=== PATIENT | female | born 1960 | race Caucasian/White ===

== ENCOUNTER → 2016-10-07 | Outpatient (CLI) | payer OTHER ==
--- NOTE | 2016-10-07 16:57 | BD ---
EXAMINATION TYPE: MG DEXA axial skeleton. DATE OF EXAM: 10/07/2016 7:36 AM COMPARISON: NONE CLINICAL HISTORY: 55-year-old female Z78.0 POST MENOPAUSAL Height: Weight: FRAX RISK QUESTIONS: Alcohol (3 or more units per day): NO Family History (Parent hip fracture): NO FRACTURES Glucocorticoids (More than 3mos): NO (Ex: prednisone, prednisolone, methylprednisolone, dexamethasone, and hydrocortisone). History of Fracture in Adulthood: NO Secondary Osteoporosis: NO 1. Type 1 Diabetes: NO 2. Hyperthyroidism: NO 3. Menopause before 45: NO 4. Malnutrition: NO 5. Chronic liver disease: NO Rheumatoid Arthritis: NO Current Tobacco Use: NO RISK FACTORS HISTORY OF: Family History of Osteoporosis: YES, MOTHER, SISTER Smoke tobacco: NO Drink Alcohol: NO Active: SOMEWHAT Diet low in dairy products/other sources of calcium: NO Postmenopausal woman: 52 YRS OLD Adrenal Insufficiency: NO MEDICATIONS: Additional Medications: NONE TO NOTE Additional History: NONE TO NOTE EXAM MEASUREMENTS: Bone mineral densitometry was performed using the [employer] System. Bone mineral density as measured about the Lumbar spine is: ----- L1-L4(G/cm2): 0.840 T Score Values are as follows: ----- L1: -2.8 ----- L2: -3.5 ----- L3: -2.5 ----- L4: -2.8 ----- L1-L4: -2.8 Bone mineral density THIS IS HER FIRST BONE DENSITY SCAN......BASELINE STUDY Bone mineral density about the R hip (g/cm2): 0.691 Bone mineral density about the L hip (g/cm2): 0.726 T Score values are as follows: -----R Neck: -2.4 -----L Neck: -2.5 -----R Total: -2.5 -----L Total: -2.2 Bone mineral density BASELINE STUDY FOR HER FRAX %'S: 8.6% CHANCE FOR A MAJOR OSTEOPOROTIC FX AND A 1.6% CHANCE FOR A HIP FX.......PROBABILITY OF FX IN 10 YRS TIME IMPRESSION: Osteoporosis as indicated by T score values in the lumbar spine and both hips. There is increased fracture risk and therapy is usually indicated based on age. Re-Screen 1-2 years. NOTE: T-SCORE=SD OF THE YOUNG ADULT MEAN.
--- NOTE | 2016-10-11 14:02 | MM ---
Reason for exam: screening (asymptomatic). Last mammogram was performed 1 year and 1 month ago. History: Patient is nulliparous. Family history of breast cancer in mother at age 68. Took hormonal contraceptives for 22 years 4 months beginning at age 24. Physical Findings: A clinical breast exam by your physician is recommended on an annual basis and results should be correlated with mammographic findings. MG Screening Mammo w CAD Bilateral CC and MLO view(s) were taken. Prior study comparison: August 25, 2015, bilateral MG screening mammo w CAD. April 25, 2014, bilateral MG screening mammo w CAD. The breast tissue is heterogeneously dense. This may lower the sensitivity of mammography. There is no discrete abnormality. ASSESSMENT: Negative, BI-RAD 1 RECOMMENDATION: Routine screening mammogram of both breasts in 1 year.
== END | disposition home or self-care (01) ==
LOC: RADMAMWWP 07:07
PROVIDERS: ATTEND Obstetrics & Gynecology
DX: Z12.31 Encounter for screening mammogram for malignant neoplasm of breast (principal); M81.0 Age-related osteoporosis without current pathological fracture; Z78.0 Asymptomatic menopausal state; Z80.3 Family history of malignant neoplasm of breast
CPT/HCPCS: 84439; 80061; 82947; 84443; 77080; G0202

== ENCOUNTER → 2017-07-10 | Outpatient (CLI) | payer OTHER | END | disposition home or self-care (01) | LOC: RADECHMAIN 11:53 | PROVIDERS: ATTEND Family Medicine | DX: R00.2 Palpitations (principal) | CPT/HCPCS: 93270; 93271 ==

== ENCOUNTER 2017-07-22 05:27 | Inpatient (IN) | payer OTHER ==
[2017-07-22] MEDS ORDERED: SODIUM CHLORIDE 0.9% 1,000 ML IV STA (05:42)
--- NOTE | 2017-07-22 05:45 | ED ---
General Adult HPI - General Chief complaint: Recheck/Abnormal Lab/Rx Stated complaint: Certified Pediatric Nurse Practitioner Alarm Time Seen by Provider: 07/22/17 05:42 Source: patient, RN notes reviewed, old records reviewed Mode of arrival: ambulatory Limitations: no limitations - History of Present Illness Initial comments: This is a 36-year-old female the ER for evaluation of abnormal dizziness and palpitations. Patient does have history of syncopal events. Patient will also monitor secondary to episodes of syncope. Patient states she felt awkward symptoms last night did not pass out but they did send the patient for evaluation regarding out of secondary to abnormal rhythm - Related Data Allergies Allergy/AdvReac Type Severity Reaction Status Date / Time No Known Allergies Allergy Verified 07/22/17 05:36 Review of Systems ROS Statement: Those systems with pertinent positive or pertinent negative responses have been documented in the HPI. ROS Other: All systems not noted in ROS Statement are negative. Past Medical History Additional Past Medical History / Comment(s): syncopal episodes History of Any Multi-Drug Resistant Organisms: None Reported Past Surgical History: No Surgical Hx Reported Past Psychological History: No Psychological Hx Reported Smoking Status: Never smoker Past Alcohol Use History: None Reported Past Drug Use History: None Reported General Exam Limitations: no limitations General appearance: alert, in no apparent distress Head exam: Present: atraumatic, normocephalic, normal inspection Eye exam: Present: normal appearance, PERRL, EOMI. Absent: scleral icterus, conjunctival injection, periorbital swelling ENT exam: Present: normal exam, mucous membranes moist Neck exam: Present: normal inspection. Absent: tenderness, meningismus, lymphadenopathy Respiratory exam: Present: normal lung sounds bilaterally. Absent: respiratory distress, wheezes, rales, rhonchi, stridor Cardiovascular Exam: Present: regular rate, normal rhythm, normal heart sounds. Absent: systolic murmur, diastolic murmur, rubs, gallop, clicks GI/Abdominal exam: Present: soft, normal bowel sounds. Absent: distended, tenderness, guarding, rebound, rigid Extremities exam: Present: normal inspection, full ROM, normal capillary refill. Absent: tenderness, pedal edema, joint swelling, calf tenderness Back exam: Present: normal inspection Neurological exam: Present: alert, oriented X3, CN II-XII intact Psychiatric exam: Present: normal affect, normal mood Skin exam: Present: warm, dry, intact, normal color. Absent: rash Course Vital Signs 07/22/17 05:30 Temperature 97.9 F Pulse Rate 88 Respiratory 16 Rate Blood Pressure 118/73 O2 Sat by Pulse 100 Oximetry - Reevaluation(s) Reevaluation #1: 07/22/17 05:[address] Martin re patient abnormal rhythm, patient had runs of Ventricular Tachycardia on Halter Monitor no VT here in ED EKG Findings - EKG Comments: EKG Findings:: EKG shows normal sinus rhythm rate of 76, [place] 1:30, QRS 02, QTc 434 Medical Decision Making - Medical Decision Making 56 female the ER for evaluation of altered monitor secondary to recent syncopal events. Patient be admitted for run of V. tach and seen by cardiology Disposition Clinical Impression: Arrhythmia, Ventricular tachycardia Disposition: ADMITTED IP TO THIS HOSP Condition: Good Referrals: Jack Almaraz MD [Primary Care Provider] - 1-2 days
[2017-07-22 06:23] LABS: Basophils % (A) 1 %; Eosinophils # (A) 0.1 k/uL (0-0.7); Eosinophils % (A) 1 %; HCT 40.5 % (34.0-46.0); HGB 13.1 gm/dL (11.4-16.0); Lymphocytes # (A) 1.6 k/uL (1.0-4.8); Lymphocytes % (A) 32 %; MCH 28.9 pg (25.0-35.0); MCHC 32.4 g/dL (31.0-37.0); MCV 89.2 fL (80.0-100.0); Mean Platelet Volume 7.8; Monocytes # (A) 0.3 k/uL (0-1.0); Monocytes % (A) 5 %; Neutrophils % (A) 61 %; Platelet Count 204 k/uL (150-450); RBC 4.54 m/uL (3.80-5.40); RDW 12.7 % (11.5-15.5)
[2017-07-22 06:32] LABS: Partial Thromboplastin Time 22.4 sec (22.0-30.0)
[2017-07-22 06:33] LABS: ALT 24 U/L (9-52); AST 21 U/L (14-36); Albumin 3.9 g/dL (3.5-5.0); Alkaline Phosphatase 70 U/L (38-126); Anion Gap 10 mmol/L; Blood Urea Nitrogen 20 mg/dL (7-17); Calcium 9.3 mg/dL (8.4-10.2); Carbon Dioxide 25 mmol/L (22-30); Chloride 107 mmol/L (98-107); Glucose 89 mg/dL (74-99); Phosphorus 3.8 mg/dL (2.5-4.5); Potassium 4.2 mmol/L (3.5-5.1); Sodium 142 mmol/L (137-145); Total Bilirubin 0.4 mg/dL (0.2-1.3); Total Protein 6.8 g/dL (6.3-8.2)
[2017-07-22 06:57] LABS: Creatine Kinase 40 U/L (30-135)
[2017-07-22 07:10] LABS: Creatine Kinase MB 0.3 ng/mL (0.0-2.4); Troponin I <0.012 ng/mL (0.000-0.034)
[2017-07-22] MEDS ORDERED: ONDANSETRON 4 MG/2 ML VIAL IVP PRN (12:33)
[2017-07-22] MEDS ORDERED: LACTULOSE 20 GM/30 ML CUP PO PRN (12:33)
[2017-07-22] MEDS ORDERED: NALOXONE 0.4 MG/ML 1 ML VIAL IV PRN (12:33)
[2017-07-22] MEDS ORDERED: LORazepam 0.5 MG TAB PO PRN (12:33)
[2017-07-22] MEDS ORDERED: Acetaminophen-Codeine 300-30mg TAB PO PRN (12:33)
[2017-07-22] MEDS ORDERED: CALCIUM CARBONATE 500 MG CHEWABLE PO PRN (12:33)
[2017-07-22] MEDS ORDERED: MELATONIN 3 MG TABLET PO PRN (12:33)
[2017-07-22] MEDS ORDERED: MAGNESIUM HYDROXIDE 2,400 MG/10 ML CUP PO PRN (12:33)
--- NOTE | 2017-07-22 13:10 | HP ---
HISTORY AND PHYSICAL DATE OF ADMISSION: 07/22/17. PRESENT COMPLAINT: Dizzy. HISTORY OF PRESENTING COMPLAINT: A very pleasant 56-year-old patient of Dr. Almaraz with unremarkable past medical history. Patient on July 04 was [place] when she actually passed out. She got up not feeling well, tingling in the fingers. Since then, she has had some episodes of dizziness spells, was given a Holter monitor by family doctor, Dr. Almaraz. The patient was called in because she had a 14-beat run of ventricular tachycardia and she is now being admitted for the same. Denies any chest pain or palpitations. Rather active otherwise. Denies use of any recreational drugs. Otherwise in good health. The patient's is at the bedside. REVIEW OF SYSTEMS: CONSTITUTIONAL: None. HEENT: None. RESPIRATORY: None. CARDIOVASCULAR: As above. GASTROINTESTINAL: Denies. MUSCULOSKELETAL: None. DERMATOLOGIC, HEMATOLOGIC, LYMPHATIC: None. PSYCHIATRY: None. NEUROLOGICAL: None. PAST MEDICAL HISTORY: None. PAST SURGICAL HISTORY: None. SOCIAL HISTORY: No smoking, no alcohol. Patient does pattern for car seats. . No recreational drugs. FAMILY HISTORY: Reviewed, noncontributory to presentation. HOME MEDICATIONS: Vitamin D3 1000 units p.o. daily, calcium 600 mg p.o. daily, vitamin C 500 mg p.o. daily. ALLERGIES: None. PHYSICAL EXAMINATION: Temperature 98.2, pulse 78, respirations 16, blood pressure 116/73, pulse ox 96% on room air. GENERAL APPEARANCE: Average built, sitting up, comfortable. EYES: Pupils equal. Conjunctivae normal. HEENT: External appearance of ears and nose normal. Oral cavity normal. NECK: JVD not raised. Mass not palpable. RESPIRATORY: Effort, lungs are clear. CARDIOVASCULAR: First and second sounds, no edema. ABDOMEN: Soft, nontender. Liver and spleen not palpable. LYMPHATIC: No lymph node palpable in neck or axillae. PSYCHIATRY: Alert and oriented x3. Mood and affect normal. NEUROLOGICAL: Pupils equal. Cranial nerves grossly intact. Power and sensation grossly intact. INVESTIGATIONS: White count 5, hemoglobin 13.1 potassium 4.2. TSH normal. Troponin negative. EKG showing normal sinus rhythm. ASSESSMENT: This is a patient with episodes of dizzy spells and the patient had a syncope on July 04. Holter monitor did show 14-beat run of ventricular tachycardia for which patient is being admitted. PLAN: Patient is admitted with telemetry because of high risk of passing out. The patient needs to be observed for at least 2 nights and patient may need further intervention depending how she does. Electrophysiology, Dr. Beasley was consulted. Care was discussed with the patient. MMODL / IJN: [id number] /
--- NOTE | 2017-07-22 13:18 | CONS ---
CONSULTATION Mrs. Bennett is a patient of Dr. Jenkins who was asked to come in because of an abnormal event monitor ECG reading. I do not have the details at this time. She is a patient of Dr. Jenkins. She was prescribed event monitor because she had an episode of palpitations and syncope while sitting in an airplane. She denies any chest discomfort; no undue shortness of breath. No dizziness or lightheadedness. She has no palpitations, no syncope at this time when she had the abnormal rhythm. ALLERGIES: NO KNOWN DRUG ALLERGIES. REVIEW OF SYSTEMS: No fever, chills or rigors. No cough or expectoration. No nausea, vomiting or diarrhea. No hematuria or dysuria. No strokes or seizures. She has had one syncopal spell in an airplane. SOCIAL HISTORY: She has never been a smoker. PHYSICAL EXAMINATION: Her blood pressure was 118/73 mmHg, pulse rate in the 80s. She was afebrile at 97.9 degrees Fahrenheit. Head and neck examination is normal. Heart sounds are normal. Lungs are clear on auscultation. Extremities are warm; no edema. Twelve-lead ECG showed sinus rhythm with normal VA interval, narrow QRS, normal ST segments. No delta waves. No epsilon waves. IMPRESSION: 1. One recent episode of syncope while sitting. She was in an airplane at that time. 2. An abnormal reading on the event monitor. I do not have the details at this time. SUGGEST: 1. TSH level. 2. Two-dimensional echo and Doppler study. 3. Observation on telemetry as an inpatient. I will speak to Dr. Jenkins regarding further plans. MMODL / IJN: [id number] /
[2017-07-22] MEDS: ENOXAPARIN 40 MG/0.4 ML SYRINGE SQ SCH (17:50)
[2017-07-23] MEDS: ENOXAPARIN 40 MG/0.4 ML SYRINGE SQ SCH (08:32)
[2017-07-23] MEDS: ACETAMINOPHEN TAB 325 MG TAB PO PRN (08:32)
--- NOTE | 2017-07-23 09:33 | P.PN ---
Progress Note - Text No arrhythmias so far. 2-D echo pending. Discussed with nurse practitioner and with Dr. Jenkins. Inpatient workup of syncope and arrhythmias recommended TSH normal cardiac enzyme normal electrolytes normal. Normal ST segments on ECG narrow QRS normal NM and please see full dictation and as practitioner
--- NOTE | 2017-07-23 10:48 | P.PN ---
Subjective Progress Note Date: 07/23/17 Telemetry tracings have been unremarkable. She is maintaining sinus mechanism with no further events of ventricular tachycardia. She denies symptoms of chest pain, shortness of breath, dizziness, palpitations, nausea, vomiting or diaphoresis. She has been up ambulating without difficulty. TSH 3.2. Blood pressure 109/59 heart rate 75 afebrile maintaining oxygen saturation on room air. GENERAL: Well-appearing, well-nourished and in no acute distress. NECK: Supple without JVD or thyromegaly. LUNGS: Breath sounds clear to auscultation bilaterally. Respiration equal and unlabored. No wheezes, rales or rhonchi. HEART: Regular rate and rhythm without murmurs, rubs or gallops. S1 and S2 heard. EXTREMITIES: Normal range of motion, no edema. No clubbing or cyanosis. Peripheral pulses intact and strong. ASSESSMENT 1. Nonsustained ventricular tachycardia seen on event monitor. PLAN Continue to monitor patient on telemetry. Nothing by mouth documented for possible stress testing in the morning. This has been discussed with the patient and she is agreeable with this plan. Further recommendations to follow. Nurse Practitioner note has been reviewed, I agree with a documented findings and plan of care. Patient was seen and examined. Objective - Vital Signs Vital signs: Vital Signs Temp 97.9 F 07/23/17 04:00 Pulse 70 07/23/17 04:00 Resp 16 07/23/17 04:00 BP 108/67 07/23/17 04:00 Pulse Ox 99 07/23/17 04:00 Intake & Output 07/22/17 07/23/17 07/23/17 17:59 06:59 18:59 Weight Other: Voiding Method # Voids - Labs CBC & Chem 7: 07/22/17 05:53 07/22/17 05:53
--- NOTE | 2017-07-23 18:47 | PN ---
PROGRESS NOTE DATE OF SERVICE: 07/23/17. PRESENTING COMPLAINT: Dizzy. INTERVAL HISTORY: This patient presented with a run of ventricular tachycardia, admitted for further workup. The patient is for a stress test. No further episodes. The patient occasionally feels a bit flushed next. REVIEW OF SYSTEMS: Done for constitutional, cardiovascular, GI, pulmonary; relevant findings as above. CURRENT MEDICATIONS: Reviewed. PHYSICAL EXAMINATION: Temperature 98.2, pulse 80, respiration 16, blood pressure 117/72, pulse ox 98% on room air. GENERAL APPEARANCE: Sitting up, comfortable. EYES: Pupils equal. Conjunctivae normal. HEENT: External appearance of nose and ears normal. Oral cavity normal. NECK: JVD not raised. Mass not palpable. RESPIRATORY: Effort, lungs are clear. CARDIOVASCULAR: First and second sounds, no edema. ABDOMEN: Soft, nontender. Liver and spleen not palpable. PSYCHIATRY: Alert and oriented x3, mood and affect normal. INVESTIGATIONS: Telemetry does not show any arrhythmia. ASSESSMENT: 1. Episode of dizzy spells. The patient found to have a 14-beat run of ventricular tachycardia. 2. Episodes of patient feeling flushed, likely post menopausal symptoms. PLAN: At this point, probably cardiology is planning to do a stress test. Care was discussed with the patient. MMODL / IJN: [id number] /
[2017-07-24 07:33] VITALS: RESP 16
[2017-07-24] MEDS: ACETAMINOPHEN TAB 325 MG TAB PO PRN (10:40)
--- NOTE | 2017-07-24 11:51 | P.PN ---
Subjective Progress Note Date: 07/24/17 Telemetry tracings have been unremarkable. No further VT on telemetry. She is maintaining sinus mechanism. She denies symptoms of chest pain, shortness of breath, dizziness, palpitations, nausea, vomiting or diaphoresis. She has been up ambulating without difficulty. Objective - Vital Signs Vital signs: Vital Signs Temp 98.8 F 07/24/17 11:37 Pulse 78 07/24/17 11:37 Resp 16 07/24/17 11:37 BP 116/66 07/24/17 11:37 Pulse Ox 99 07/24/17 11:37 Intake & Output 07/23/17 07/24/17 07/24/17 18:59 06:59 18:59 Intake Total 600 Balance 600 Intake: Oral 600 Other: Voiding Method Toilet Toilet Toilet # Voids 1 1 - Exam Blood pressure 112/66 heart rate 66 afebrile maintaining oxygen saturation on room air GENERAL: Well-appearing, well-nourished and in no acute distress. NECK: Supple without JVD or thyromegaly. LUNGS: Breath sounds clear to auscultation bilaterally. Respiration equal and unlabored. No wheezes, rales or rhonchi. HEART: Regular rate and rhythm without murmurs, rubs or gallops. S1 and S2 heard. EXTREMITIES: Normal range of motion, no edema. No clubbing or cyanosis. Peripheral pulses intact and strong. - Labs CBC & Chem 7: 07/22/17 05:53 07/22/17 05:53 Assessment and Plan Assessment: ASSESSMENT 1. Non-sustained ventricular tachycardia PLAN Proceed with exercise stress test this morning as was previously ordered. Continue with beta zi. Echo findings will be reviewed. Nurse Practitioner note has been reviewed, I agree with a documented findings and plan of care. Patient was seen and examined.
[2017-07-24] MEDS ORDERED: METOPROLOL TARTRATE 25 MG TAB PO SCH (12:15)
[2017-07-24] MEDS: ENOXAPARIN 40 MG/0.4 ML SYRINGE SQ SCH (13:12)
--- NOTE | 2017-07-24 13:14 | ECHOF ---
Referral Reason:[facility] MEASUREMENTS -------- HEIGHT: 157.5 cm WEIGHT: 72.1 kg BP: IVSd: 1.2 cm (0.6 - 1.1) LVIDd: 3.4 cm (3.9 - 5.3) LVPWd: 1.2 cm (0.6 - 1.1) IVSs: 1.8 cm LVIDs: 2.6 cm LVPWs: 1.6 cm Ao Diam: 3.0 cm (2.0 - 3.7) LA Diam: 3.1 cm (2.7 - 3.8) AV Cusp: 2.2 cm (1.5 - 2.6) EPSS: 0.7 cm MV E Todd: 0.84 m/s MV DecT: 224 ms MV A Todd: 0.85 m/s MV E/A Ratio: 0.99 AR PHT: 311 ms RAP: 5.00 mmHg RVSP: 25.11 mmHg MV EF SLOPE: 116.48 mm/s (70 - 150) MV EXCURSION: 17.35 mm (> 18.000) FINDINGS -------- Sinus rhythm. This was a technically good study. The left ventricular size is normal. There is mild concentric left ventricular hypertrophy. Overa ll left ventricular systolic function is normal with, an EF between 55 - 60 %. The right ventricle is normal in size and function. The left atrium is normal in size. The right atrium is normal in size. Trace amount of aortic regurgitation. The mitral valve leaflets are mildly thickened. Mild mitral annular calcification present. Mild m itral regurgitation is present. Mild tricuspid regurgitation present. The right ventricular systolic pressure, as measured by Doppl er, is 25.11mmHg. Pulmonic valve appears structurally normal. The aortic root size is normal. Normal inferior vena cava with normal inspiratory collapse consistent with estimated right atrial pre ssure of 5 mmHg. The pericardium is normal. CONCLUSIONS -------- 1. Sinus rhythm. 2. This was a technically good study. 3. The left ventricular size is normal. 4. There is mild concentric left ventricular hypertrophy. 5. Overall left ventricular systolic function is normal with, an EF between 55 - 60 %. 6. The right ventricle is normal in size and function. 7. The left atrium is normal in size. 8. The right atrium is normal in size. 9. Trace amount of aortic regurgitation. 10. The mitral valve leaflets are mildly thickened. 11. Mild mitral annular calcification present. 12. Mild mitral regurgitation is present. 13. Mild tricuspid regurgitation present. 14. The right ventricular systolic pressure, as measured by Doppler, is 25.11mmHg. 15. Pulmonic valve appears structurally normal. 16. The aortic root size is normal. 17. Normal inferior vena cava with normal inspiratory collapse consistent with estimated right atrial pressure of 5 mmHg. 18. The pericardium is normal. EDUCATION INTERN: Julia Wagner RDCS
[2017-07-24 17:08] VITALS: BP 109/63; PULSE 79; TEMP 98.2
--- NOTE | 2017-07-24 17:27 | DS ---
DISCHARGE SUMMARY DATE OF ADMISSION: 07/22/17 DATE OF DISCHARGE: July 24, 2017 FINAL DIAGNOSES: 1. Near syncope from nonsustained ventricular tachycardia. 2. Postmenopausal symptoms. HOSPITAL COURSE: This patient presented with episodes of dizziness. Her event monitor did show 14-beat run of ventricular tachycardia. The patient did undergo a stress echocardiogram. I spoke with nurse practitionerRubi from Cardiology and negative. The patient is due to start on Lopressor as an outpatient. Did see Dr. Jenkins as an outpatient. She was seen in the hospital by Dr. Beasley. EXAM: Lungs are clear. Cardiovascular 1st and 2nd sounds normal. No further episodes. DISCHARGE MEDICATIONS: Lopressor 12.5 p.o. b.i.d. FOLLOW UP: With Dr. Almaraz in 1 week, follow up with Dr. Jenkins in [address] Almaraz. MMODL / IJN: [id number] /
--- NOTE | 2017-07-25 13:21 | ECHOS ---
- Stress Test Note Stress Test Results/Findings: Exam Performed: stress echo exercise Exam Date: 07/24/17 Reason for Exam: CHEST PAIN Height: 5 ft 2 in Weight: 72.4 kg Protocol: YONATAN Stage: 3 Duration of Exercise: 7:00 Resting Heart Rate: 90 Resting Blood Pressure: 140/60 Maximum Achieved Heart Rate: 164 Maximum Achieved Blood Pressure: 175/49 85% PMHR: 141 100% PMHR: 166 METS: 9.1 Technologist Comment: Stress Test Results/Findings: This is a 56-year-old female with history of syncope and cardiac arrhythmia in the form of nonsustained V. tach being evaluated for cardiac status. Baseline EKG showed sinus rhythm with normal CO interval, QRS duration. Blood pressure at rest is 140/60 with pulse rate of 90. Patient walked on the Yonatan protocol for 7 minutes achieving a maximum heart rate of 164 with a blood pressure 138/ 71. EKGs taken during and after exercise did not reveal any changes to suggest ischemia. Echo data: Baseline echo images show normal wall motion and thickening. Exercise echo images showed augmentation of wall motion and thickening in all the segments. Final impression: #1. Negative stress test #2. Negative stress echo MTDD
== END 2017-07-24 15:28 | disposition home or self-care (01) | DRG 310 ==
LOC: EC 05:27 → 3OBS 05:43 → OBSVTOIN 11:26
PROVIDERS: ADMIT Hospitalist; ATTEND Hospitalist
DX: I47.2 Ventricular tachycardia (principal); N95.9 Unspecified menopausal and perimenopausal disorder
CPT/HCPCS: 36415; 80053; 82550; 82553; 83735; 84100; 84443; 84484; 85025; 85379; 85610; 85730; 93005; 93017; 93306; 93350; 96360; 99285

== ENCOUNTER 2017-08-02 16:47 | Emergency (ER) | payer OTHER ==
[2017-08-02 16:56] VITALS: TEMP 98.3
[2017-08-02] MEDS ORDERED: SODIUM CHLORIDE 0.9% 1,000 ML IV STA (17:42)
--- NOTE | 2017-08-02 17:59 | ED ---
Dizziness HPI - General Chief Complaint: Dizziness Stated Complaint: Dizzy Time Seen by Provider: 08/02/17 17:24 Source: patient Mode of arrival: ambulatory Limitations: no limitations - History of Present Illness Initial Comments: 56-year-old female patient presents to the emergency department today for evaluation after experiencing an episode of dizziness. Patient states around 2 PM this afternoon she was driving when she became dizzy and lightheaded. States that she started to experience numbness and tingling in her bilateral hands. She states that she is feeling very unwell. Patient states that she did call an ambulance. States that she was monitored in the ambulance for short period. States that they released her and she came here for further evaluation. Patient states she has been wearing an event monitor after a syncopal episode on an airplane approximately a month and a half ago. Patient was recently admitted here for episodes of V. tach. She was started on Lopressor at time of discharge. Patient has been following with Dr. Jenkins outpatient for this. Patient states after the dizziness she did start to feel very anxious and was breathing fast. Patient denies any chest pain, shortness of breath, headache, blurred vision, or double vision. She denies any abdominal pain, nausea, or vomiting. Patient denies any recent rash, fever, chills, diarrhea, constipation, back pain, hematuria, dysuria, urinary urgency, urinary frequency, headache, visual changes, or any other complaints. - Related Data Home Medications Medication Instructions Recorded Confirmed Ascorbic Acid [Vitamin C] 500 mg PO DAILY 07/22/17 08/02/17 Calcium Carbonate [Calcium] 1,200 mg PO DAILY 07/22/17 08/02/17 Raloxifene [Evista] 60 mg PO DAILY 08/02/17 08/02/17 Previous Rx's Medication Instructions Recorded Metoprolol Tartrate [Lopressor] 12.5 mg PO BID #60 tab 07/25/17 Allergies Allergy/AdvReac Type Severity Reaction Status Date / Time No Known Allergies Allergy Verified 08/02/17 17:11 Review of Systems ROS Statement: Those systems with pertinent positive or pertinent negative responses have been documented in the HPI. ROS Other: All systems not noted in ROS Statement are negative. Past Medical History Additional Past Medical History / Comment(s): syncopal episodes History of Any Multi-Drug Resistant Organisms: None Reported Past Surgical History: No Surgical Hx Reported Past Psychological History: No Psychological Hx Reported Smoking Status: Never smoker Past Alcohol Use History: None Reported Past Drug Use History: None Reported General Exam Limitations: no limitations General appearance: alert, in no apparent distress, other (This is a well- developed, well-nourished adult female patient in no acute distress. Vital signs upon presentation are temperature 98.3F, pulse 103, respirations 20, blood pressure 135/86, pulse ox 99% on room air.) Eye exam: Present: normal appearance, PERRL, EOMI. Absent: scleral icterus, conjunctival injection, periorbital swelling ENT exam: Present: normal exam, normal oropharynx, mucous membranes moist Respiratory exam: Present: normal lung sounds bilaterally. Absent: respiratory distress, wheezes, rales, rhonchi, stridor Cardiovascular Exam: Present: regular rate, normal rhythm, normal heart sounds. Absent: systolic murmur, diastolic murmur, rubs, gallop, clicks GI/Abdominal exam: Present: soft, normal bowel sounds. Absent: distended, tenderness, guarding, rebound, rigid Neurological exam: Present: alert, oriented X3, CN II-XII intact Psychiatric exam: Present: normal affect, normal mood Skin exam: Present: warm, dry, intact, normal color. Absent: rash Course Vital Signs 08/02/17 08/02/17 16:51 18:41 Temperature 98.3 F Pulse Rate 103 H 77 Respiratory 20 18 Rate Blood Pressure 135/86 105/56 O2 Sat by Pulse 99 99 Oximetry EKG Findings - EKG Comments: EKG Findings:: EKG obtained at 1704 shows normal sinus rhythm with a ventricular rate of 83, SC interval 1:30, QRS duration 98, QT 392, QTc 460. No evidence of ST elevation or depression. No evidence of ectopy. Medical Decision Making - Medical Decision Making 56-year-old female patient presented to the emergency department today for evaluation after having an episode of dizziness and tingling to her bilateral hands and feet. Physical examination is unremarkable. Lungs are clear to auscultation with good air movement. Heart rhythm is regular and heart sounds are normal. Vital signs within stable since arrival. Patient is wearing an event monitor I did speak to the staff at the event monitoring company reported that around 1330 4 PM patient did have an episode of sinus bradycardia around 50 -60 bpm. States that the patient did activate a recording around 2:15 PM it did show sinus tachycardia with a rate of 140. Labs were obtained here and are unremarkable. Troponin and cardiac profiles negative. Chest x-ray shows no acute cardiopulmonary process. Upon reevaluation patient reports she is feeling better and is not currently having any dizziness. She will be discharged home at this time to follow-up with her director of home economics as soon as possible. She is encouraged to return here immediately if she has any new, worsening, or concerning symptoms. She verbalizes understanding and agrees with this plan. - Lab Data Result diagrams: 08/02/17 17:54 08/02/17 17:54 Lab Results 08/02/17 08/02/17 08/02/17 Range/Units 17:54 17:54 17:54 WBC 7.8 (3.8-10.6) k/uL RBC 4.90 (3.80-5.40) m/uL Hgb 14.1 (11.4-16.0) gm/dL Hct 43.1 (34.0-46.0) % MCV 87.9 (80.0-100.0) fL MCH 28.7 (25.0-35.0) pg MCHC 32.7 (31.0-37.0) g/dL RDW 12.8 (11.5-15.5) % Plt Count 210 (150-450) k/uL Neutrophils % 76 % Lymphocytes % 17 % Monocytes % 6 % Eosinophils % 0 % Basophils % 0 % Neutrophils # 5.9 (1.3-7.7) k/uL Lymphocytes # 1.3 (1.0-4.8) k/uL Monocytes # 0.5 (0-1.0) k/uL Eosinophils # 0.0 (0-0.7) k/uL Basophils # 0.0 (0-0.2) k/uL PT 10.1 (9.0-12.0) sec INR 1.0 (<1.2) APTT 22.2 (22.0-30.0) sec Sodium 140 (137-145) mmol/L Potassium 4.4 (3.5-5.1) mmol/L Chloride 103 (98-107) mmol/L Carbon Dioxide 30 (22-30) mmol/L Anion Gap 7 mmol/L BUN 14 (7-17) mg/dL Creatinine 0.71 (0.52-1.04) mg/dL Est GFR (CKD-EPI)AfAm >90 (>60 ml/min/1.73 sqM) Est GFR (CKD-EPI)NonAf >90 (>60 ml/min/1.73 sqM) Glucose 99 (74-99) mg/dL Calcium 10.5 H (8.4-10.2) mg/dL Magnesium 2.0 (1.6-2.3) mg/dL Total Bilirubin 0.4 (0.2-1.3) mg/dL AST 25 (14-36) U/L ALT 32 (9-52) U/L Alkaline Phosphatase 77 (38-126) U/L Total Creatine Kinase (30-135) U/L CK-MB (CK-2) (0.0-2.4) ng/mL CK-MB (CK-2) Rel Index Troponin I (0.000-0.034) ng/mL Total Protein 7.6 (6.3-8.2) g/dL Albumin 4.4 (3.5-5.0) g/dL Urine Color Urine Appearance (Clear) Urine pH (5.0-8.0) Ur Specific [place] (1.001-1.035) Urine Protein (Negative) Urine Glucose (UA) (Negative) Urine Ketones (Negative) Urine Blood (Negative) Urine Nitrite (Negative) Urine Bilirubin (Negative) Urine Urobilinogen (<2.0) mg/dL Ur Leukocyte Esterase (Negative) 08/02/17 08/02/17 Range/Units 17:54 17:54 WBC (3.8-10.6) k/uL RBC (3.80-5.40) m/uL Hgb (11.4-16.0) gm/dL Hct (34.0-46.0) % MCV (80.0-100.0) fL MCH (25.0-35.0) pg MCHC (31.0-37.0) g/dL RDW (11.5-15.5) % Plt Count (150-450) k/uL Neutrophils % % Lymphocytes % % Monocytes % % Eosinophils % % Basophils % % Neutrophils # (1.3-7.7) k/uL Lymphocytes # (1.0-4.8) k/uL Monocytes # (0-1.0) k/uL Eosinophils # (0-0.7) k/uL Basophils # (0-0.2) k/uL PT (9.0-12.0) sec INR (<1.2) APTT (22.0-30.0) sec Sodium (137-145) mmol/L Potassium (3.5-5.1) mmol/L Chloride (98-107) mmol/L Carbon Dioxide (22-30) mmol/L Anion Gap mmol/L BUN (7-17) mg/dL Creatinine (0.52-1.04) mg/dL Est GFR (CKD-EPI)AfAm (>60 ml/min/1.73 sqM) Est GFR (CKD-EPI)NonAf (>60 ml/min/1.73 sqM) Glucose (74-99) mg/dL Calcium (8.4-10.2) mg/dL Magnesium (1.6-2.3) mg/dL Total Bilirubin (0.2-1.3) mg/dL AST (14-36) U/L ALT (9-52) U/L Alkaline Phosphatase (38-126) U/L Total Creatine Kinase 39 (30-135) U/L CK-MB (CK-2) 0.3 (0.0-2.4) ng/mL CK-MB (CK-2) Rel Index 0.8 Troponin I <0.012 (0.000-0.034) ng/mL Total Protein (6.3-8.2) g/dL Albumin (3.5-5.0) g/dL Urine Color Colorless Urine Appearance Clear (Clear) Urine pH 8.0 (5.0-8.0) Ur Specific [place] 1.004 (1.001-1.035) Urine Protein Negative (Negative) Urine Glucose (UA) Negative (Negative) Urine Ketones Negative (Negative) Urine Blood Negative (Negative) Urine Nitrite Negative (Negative) Urine Bilirubin Negative (Negative) Urine Urobilinogen <2.0 (<2.0) mg/dL Ur Leukocyte Esterase Negative (Negative) - Radiology Data Radiology results: report reviewed, image reviewed Two-view x-ray of the chest shows the lungs are clear. Pleural spaces are negative. The cardiac silhouette is not enlarged; mediastinal pleural silhouette unremarkable. The skeletal structures are notable for mild compression of the thoracic spine vertebral body in the setting of what appears to be generalized osteopenia. The age is compression is unknown. No other skeletal findings. Soft tissues unremarkable. Impression by Dr. Jamie Agrawal shows no definite acute process. Disposition Clinical Impression: Dizziness, Sinus tachycardia Disposition: HOME SELF-CARE Condition: Good Instructions: Dizziness (ED), Tachycardia (ED) Additional Instructions: Follow-up with cardiology as soon as possible. Return here immediately for any new, worsening, or concerning symptoms. Referrals: Michelle Flores MD [Primary Care Provider] - 1-2 days Hannah Jenkins MD [STAFF PHYSICIAN] - 1-2 days Time of Disposition: 18:55
[2017-08-02 18:06] LABS: Basophils % (A) 0 %; Eosinophils % (A) 0 %; HCT 43.1 % (34.0-46.0); HGB 14.1 gm/dL (11.4-16.0); Lymphocytes # (A) 1.3 k/uL (1.0-4.8); Lymphocytes % (A) 17 %; MCH 28.7 pg (25.0-35.0); MCHC 32.7 g/dL (31.0-37.0); MCV 87.9 fL (80.0-100.0); Mean Platelet Volume 7.3; Monocytes # (A) 0.5 k/uL (0-1.0); Monocytes % (A) 6 %; Neutrophils # (A) 5.9 k/uL (1.3-7.7); Neutrophils % (A) 76 %; Platelet Count 210 k/uL (150-450); RDW 12.8 % (11.5-15.5); WBC 7.8 k/uL (3.8-10.6)
[2017-08-02 18:07] LABS: Appearance,Urine Clear (Clear); Bilirubin,Urine Negative (Negative); Blood,Urine Negative (Negative); Color,Urine Colorless; Glucose,Urine (UA) Negative (Negative); Ketones,Urine Negative (Negative); Leukocyte Esterase,Urine Negative (Negative); Nitrite,Urine Negative (Negative); Protein,Urine Negative (Negative); Specific Gravity,Urine 1.004 (1.001-1.035); Urobilinogen,Urine <2.0 mg/dL (<2.0)
[2017-08-02 18:16] LABS: Prothrombin Time 10.1 sec (9.0-12.0)
[2017-08-02 18:18] LABS: ALT 32 U/L (9-52); AST 25 U/L (14-36); Albumin 4.4 g/dL (3.5-5.0); Alkaline Phosphatase 77 U/L (38-126); Anion Gap 7 mmol/L; Blood Urea Nitrogen 14 mg/dL (7-17); Calcium 10.5 mg/dL (8.4-10.2); Carbon Dioxide 30 mmol/L (22-30); Chloride 103 mmol/L (98-107); Glucose 99 mg/dL (74-99); Potassium 4.4 mmol/L (3.5-5.1); Sodium 140 mmol/L (137-145); Total Bilirubin 0.4 mg/dL (0.2-1.3); Total Protein 7.6 g/dL (6.3-8.2)
--- NOTE | 2017-08-02 18:21 | XR ---
EXAMINATION: XR chest 2V DATE AND TIME: 08/02/2017 6:18 PM ORDERING PROVIDER: Sonal Anaya CLINICAL INDICATION: Dizziness; Palpitations TECHNIQUE: PA and lateral COMPARISON: None. DESCRIPTION: The lungs are clear. The pleural spaces are negative. The cardiac silhouette is not enlarged; the mediastinal and pleural silhouettes are unremarkable. The skeletal structures are notable for mild compression of a mid thoracic spine vertebral body in th e setting of what appears to be generalized osteopenia. The age of this compression is unknown. No ot her skeletal findings. The soft tissues are unremarkable. IMPRESSION: NO DEFINITE ACUTE PROCESS.
[2017-08-02 18:23] LABS: Partial Thromboplastin Time 22.2 sec (22.0-30.0)
[2017-08-02 18:27] LABS: Creatine Kinase 39 U/L (30-135)
[2017-08-02 18:39] LABS: Creatine Kinase MB 0.3 ng/mL (0.0-2.4); Troponin I <0.012 ng/mL (0.000-0.034)
[2017-08-02 18:42] VITALS: BP 105/56; PULSE 77; RESP 18
== END 2017-08-02 19:22 | disposition home or self-care (01) ==
LOC: EC 16:47
DX: R42 Dizziness and giddiness (principal); R00.0 Tachycardia, unspecified; R20.0 Anesthesia of skin; Z79.899 Other long term (current) drug therapy
CPT/HCPCS: 36415; 71046; 80053; 81003; 82550; 82553; 83735; 84484; 85025; 85610; 85730; 93005; 96360; 99284

== ENCOUNTER 2017-09-18 10:09 | Day surgery (SDC) | payer OTHER ==
[2017-09-15 08:38] VITALS: BMI 28.3
[~2017-09-18 10:09] MED LIST: LACTATED RINGERS 1,000 ML IV SCH; LIDOCAINE 1% 20 ML VIAL (10MG/ML) FOR IV START INTRADERMA PRN
[2017-09-18 10:48] VITALS: TEMP 97.2
[2017-09-18] MEDS ORDERED: PROPOFOL 10 MG/ML 20 ML VIAL IV ONE (11:00)
[2017-09-18] MEDS ORDERED: LIDOCAINE 1% INJ 10MG/ML (20 ML MDV) ONE (11:00)
[2017-09-18 11:23] VITALS: RESP 18
--- NOTE | 2017-09-18 11:26 | P.PCN ---
Date of Procedure: 09/18/17 Procedure(s) Performed: Procedure: Total colonoscopy. Preoperative diagnosis: Screening for neoplasia. Postoperative diagnosis: Mild sigmoid diverticulosis with no evidence of acute diverticulitis, strictures, polyps or cancer. Preparation: HalfLytely prep. Sedation: Was provided by anesthesia. Brief clinical history: The patient is a 56-year-old female who is scheduled for this evaluation for screening for neoplasia age being her risk factor. She has no abdominal complaints bleeding or anemia. There is no family history of colon cancer. This would be her first colonoscopy. Procedure: With the patient on her left lateral decubitus position and after informed consent and adequate sedation, the perianal area was inspected and it did not show any fissures or fistulas. There were no masses felt on digital rectal examination. The Olympus CFQ 160L video colonoscope was then inserted in the rectum in the usual fashion and advanced to the cecum. There were occasional diverticular orifices seen scattered in the sigmoid with no evidence of acute diverticulitis or strictures. No polyps or tumors were seen. I retroflexed the endoscope in the rectum before the endoscope was withdrawn. The patient tolerated the procedure well. Plan: The patient was reassured. Discussed dietary measures. She will follow- up with you as planned and I recommended repeat exam in 10 years.
[2017-09-18 11:37] VITALS: BP 108/68; PULSE 63
== END 2017-09-18 12:04 | disposition home or self-care (01) ==
LOC: ORWHC2ENDO 10:09
DX: Z12.11 Encounter for screening for malignant neoplasm of colon (principal); K57.30 Diverticulosis of large intestine without perforation or abscess without bleeding; Z83.71 Family history of colonic polyps; R55 Syncope and collapse
CPT/HCPCS: J2001; J2704; G0105

== ENCOUNTER → 2018-01-26 | Outpatient (CLI) | payer OTHER ==
--- NOTE | 2018-01-30 08:49 | MM ---
Reason for exam: screening (asymptomatic). Last mammogram was performed 1 year and 4 months ago. History: Patient is postmenopausal and is nulliparous. Family history of breast cancer in mother at age 68. Took hormonal contraceptives for 22 years 4 months beginning at age 24. Physical Findings: A clinical breast exam by your physician is recommended on an annual basis and results should be correlated with mammographic findings. MG Screening Mammo w CAD Bilateral CC and MLO view(s) were taken. Prior study comparison: October 07, 2016, bilateral MG screening mammo w CAD. August 25, 2015, bilateral MG screening mammo w CAD. The breast tissue is heterogeneously dense. This may lower the sensitivity of mammography. No significant changes when compared with prior studies. ASSESSMENT: Negative, BI-RAD 1 RECOMMENDATION: Routine screening mammogram of both breasts in 1 year.
== END ==
LOC: RADMAMWWP 08:05
PROVIDERS: ATTEND Obstetrics & Gynecology
DX: Z12.31 Encounter for screening mammogram for malignant neoplasm of breast (principal); Z80.3 Family history of malignant neoplasm of breast
CPT/HCPCS: 77067

== ENCOUNTER → 2019-07-18 | Outpatient (CLI) | payer OTHER ==
--- NOTE | 2019-07-19 11:20 | MM ---
Reason for exam: screening (asymptomatic). Last mammogram was performed 1 year and 6 months ago. History: Patient is postmenopausal and is nulliparous. Family history of breast cancer in mother at age 68. Took hormonal contraceptives for 22 years 4 months beginning at age 24. Physical Findings: A clinical breast exam by your physician is recommended on an annual basis and results should be correlated with mammographic findings. MG Screening Mammo w CAD Bilateral CC and MLO view(s) were taken. XCCL view(s) were taken of the right breast. Prior study comparison: January 26, 2018, bilateral MG screening mammo w CAD. October 07, 2016, bilateral MG screening mammo w CAD. The breast tissue is heterogeneously dense. This may lower the sensitivity of mammography. No suspicious abnormality. No significant changes when compared with prior studies. ASSESSMENT: Negative, BI-RAD 1 RECOMMENDATION: Routine screening mammogram of both breasts in 1 year.
== END | disposition home or self-care (01) ==
LOC: RADMAMWWP 11:14
PROVIDERS: ATTEND Obstetrics & Gynecology
DX: Z12.31 Encounter for screening mammogram for malignant neoplasm of breast (principal); Z80.3 Family history of malignant neoplasm of breast
CPT/HCPCS: 77067

== ENCOUNTER → 2020-11-16 | Outpatient (CLI) | payer BC ==
--- NOTE | 2020-11-19 09:46 | MM ---
Reason for exam: screening (asymptomatic). Last mammogram was performed 1 year and 4 months ago. History: Patient is postmenopausal and is nulliparous. Family history of breast cancer in mother at age 68. Took hormonal contraceptives for 22 years 4 months beginning at age 24. Physical Findings: A clinical breast exam by your physician is recommended on an annual basis and results should be correlated with mammographic findings. MG Screening Mammo w CAD Bilateral CC and MLO view(s) were taken. Prior study comparison: July 18, 2019, bilateral MG screening mammo w CAD. January 26, 2018, bilateral MG screening mammo w CAD. There are scattered fibroglandular densities. No significant changes when compared with prior studies. ASSESSMENT: Benign, BI-RAD 2 RECOMMENDATION: Routine screening mammogram of both breasts in 1 year.
== END | disposition home or self-care (01) ==
LOC: RADMAMWWP 11:14
PROVIDERS: ATTEND Obstetrics & Gynecology
DX: Z12.31 Encounter for screening mammogram for malignant neoplasm of breast (principal); Z78.0 Asymptomatic menopausal state; Z80.3 Family history of malignant neoplasm of breast
CPT/HCPCS: 77067

== ENCOUNTER → 2023-10-26 | Outpatient (CLI) | payer BC ==
[2023-10-26 09:17] LABS: Basophils % (A) 1 %; Eosinophils # (A) 0.1 k/uL (0-0.7); Eosinophils % (A) 2 %; HCT 43.9 % (34.0-46.0); HGB 13.9 gm/dL (11.4-16.0); Lymphocytes # (A) 1.9 k/uL (1.0-4.8); Lymphocytes % (A) 34 %; MCH 29.7 pg (25.0-35.0); MCHC 31.7 g/dL (31.0-37.0); MCV 93.9 fL (80.0-100.0); Mean Platelet Volume 8.2; Monocytes # (A) 0.4 k/uL (0-1.0); Monocytes % (A) 7 %; Neutrophils % (A) 55 %; Platelet Count 203 k/uL (150-450); RBC 4.68 m/uL (3.80-5.40); RDW 12.8 % (11.5-15.5); WBC 5.6 k/uL (3.8-10.6)
[2023-10-26 15:55] LABS: ALT 18 U/L (8-44); AST 19 U/L (13-35); Albumin 4.3 g/dL (3.8-4.9); Albumin/Globulin Ratio 1.72 Ratio (1.60-3.17); Alkaline Phosphatase 74 U/L (41-126); Calcium 9.2 mg/dL (8.7-10.3); Carbon Dioxide 26.7 mmol/L (21.6-31.8); Chloride 111 mmol/L (96-109); Chol/HDL Ratio 2.67 Ratio; Globulin 2.5 g/dL (1.6-3.3); Glucose 87 mg/dL (70-110); LDL Cholesterol,Calculated 130.2 mg/dL (0.0-131.0); Potassium 4.2 mmol/L (3.5-5.5); Sodium 149 mmol/L (135-145); Total Bilirubin 0.3 mg/dL (0.3-1.2); Total Protein 6.8 g/dL (6.2-8.2)
--- NOTE | 2023-10-27 11:56 | MM ---
Reason for Exam: Screening (asymptomatic). Last mammogram was performed 1 year(s) and 4 month(s) ago. Patient History: Menarche at age 18. Patient has no children. Postmenopausal. Hormonal Contraceptives, starting at age 24 for 22 years, 4 months. Mother had breast cancer, age 68. Risk Values: Yue 5 year model risk: 2.7%. NCI Lifetime model risk: 12.4%. Prior Study Comparison: 10/07/2016 Bilateral Screening Mammogram, [facility]. 01/26/2018 Bilateral Screening Mammogram, [facility]. 07/18/2019 Bilateral Screening Mammogram, [facility]. 11/16/2020 Bilateral Screening Mammogram, [facility]. 06/23/2022 Bilateral MG screening mammo w CAD, [facility]. Tissue Density: The breasts are heterogeneously dense, which may obscure small masses. Findings: Analyzed By CAD. There is no suspicious group of microcalcifications or new suspicious mass in either breast. Overall Assessment: Benign, BI-RAD 2 Management: Screening Mammogram of both breasts in 1 year. . Patient should continue monthly self-breast exams. A clinical breast exam by your physician is recommended on an annual basis. This exam should not preclude additional follow-up of suspicious palpable abnormalities. Note on Yue scores and lifetime risk: 1. A Yue score greater than 3% is considered moderate risk. If this is the case, consider specialist referral to assess eligibility for a risk reducing agent. 2. If overall lifetime risk for the development of breast cancer is 20% or higher, the patient may qualify for future screening with alternating mammogram and breast MRI. Electronically signed and approved by: Jack Greco M.D. Radiologis
== END | disposition home or self-care (01) ==
LOC: RADMAMWWP 07:54
PROVIDERS: ATTEND Family Medicine
DX: Z00.00 Encounter for general adult medical examination without abnormal findings (principal); Z12.31 Encounter for screening mammogram for malignant neoplasm of breast; Z78.0 Asymptomatic menopausal state; Z80.3 Family history of malignant neoplasm of breast
CPT/HCPCS: 77067; 80053; 80061; 83036; 84443; 85025

== ENCOUNTER → 2024-10-28 | Outpatient (CLI) | payer BC ==
--- NOTE | 2024-10-28 11:39 | MM ---
Reason for Exam: Screening (asymptomatic). Last screening mammogram was performed 12 month(s) ago. Patient History: Menarche at age 18. Patient has no children. Postmenopausal. Hormonal Contraceptives, starting at age 24 for 22 years, 4 months. Mother had breast cancer, age 68. Risk Values: Yue 5 year model risk: 2.7%. NCI Lifetime model risk: 12.1%. Prior Study Comparison: 11/16/2020 Bilateral Screening Mammogram, [facility]. 06/23/2022 Bilateral MG screening mammo w CAD, [facility]. 10/26/2023 Bilateral MG screening mammo w CAD, [facility]. Tissue Density: The breasts are heterogeneously dense, which may obscure small masses. Findings: Analyzed By CAD. There is no suspicious group of microcalcifications or new suspicious mass in either breast. Overall Assessment: Negative, BI-RAD 1 Management: Screening Mammogram of both breasts in 1 year. Patient should continue monthly self-breast exams. A clinical breast exam by your physician is recommended on an annual basis. This exam should not preclude additional follow-up of suspicious palpable abnormalities. Note on Yue scores and lifetime risk: 1. A Yue score greater than 3% is considered moderate risk. If this is the case, consider specialist referral to assess eligibility for a risk reducing agent. 2. If overall lifetime risk for the development of breast cancer is 20% or higher, the patient may qualify for future screening with alternating mammogram and breast MRI. [facility], , 10/28/2024 11:30 AM. Electronically signed and approved by: Madeline Carroll M.D. Radiologist
== END | disposition home or self-care (01) ==
LOC: RADMAMWWP 10:40
PROVIDERS: ATTEND Family Medicine
DX: Z12.31 Encounter for screening mammogram for malignant neoplasm of breast (principal); R92.333 Mammographic heterogeneous density, bilateral breasts; Z78.0 Asymptomatic menopausal state; Z80.3 Family history of malignant neoplasm of breast; Z92.0 Personal history of contraception
CPT/HCPCS: 77063; 77067